=== PATIENT | female | born 1950 | race Caucasian/White ===

== ENCOUNTER → 2023-07-28 13:16 | Outpatient (REF) | payer MEDICARE, OTHER, SELFPAY | LOC: HWWDC 13:16 | PROVIDERS: ATTENDING PHYSICIAN Internal Medicine | DX: Z12.31 Encounter for screening mammogram for malignant neoplasm of breast (principal) | CPT/HCPCS: 77063; 77067 ==

== ENCOUNTER → 2023-08-24 12:38 | Outpatient (REF) | payer MEDICARE, OTHER, SELFPAY | LOC: RAD 12:38 | PROVIDERS: ATTENDING PHYSICIAN Nurse Practitioner Adult Health; FAMILY PHYSICIAN Internal Medicine | DX: R06.02 Shortness of breath (principal); R05.1 Acute cough | CPT/HCPCS: 71046 ==

== ENCOUNTER → 2023-11-30 11:00 | Outpatient (REF) | payer MEDICARE, OTHER, SELFPAY | LOC: HWRAD 11:00 | PROVIDERS: ATTENDING PHYSICIAN Internal Medicine | DX: M85.80 Other specified disorders of bone density and structure, unspecified site (principal); M85.89 Other specified disorders of bone density and structure, multiple sites | CPT/HCPCS: 77080 ==

== ENCOUNTER 2024-07-19 15:47 | Emergency (ER) | payer MEDICARE, OTHER, SELFPAY ==
[2024-07-19 15:50] VITALS: BP 157/97
--- NOTE | 2024-07-19 16:11 | ED.GENMED ---
History of Present Illness
General
Chief Complaint: Head Injury
Source: patient
Exam Limitations: none
Time Seen by Provider: 07/19/24 16:06
Nursing documentation reviewed up to this point in time: agreed with
History of Present Illness
History of Present Illness:
Patient states she was getting out of her car and moved car forward. SHe fell back and hit back of head on pavement. No LOC. Complains of headache, pain to posterior scalp. Injury occurred just [employer]
Past History
Past History
ED Past Medical History: HTN (Urinary frequency.), Hypercholesterolemia, Hypothyroidism and Psychiatric (anxiety)
ED Past Surgical History: Gynecological (Bladder lift December 2013)
Social History
Tobacco: Non-smoker
Alcohol: None
Drug: None
Personal:
Living: with family
Employment: Employed
Family History
Family History: CAD
Review of Systems
Review of Systems
Allergies reviewed?: Yes
All Other Systems: ROS reviewed and negative except as documented in HPI and ROS
Constitutional: Reports no symptoms
EENT: Reports no symptoms
Respiratory: Reports no symptoms
Cardiac: Reports no symptoms
ABD/GI: Reports no symptoms
: Reports no symptoms
Musculoskeletal: Reports no symptoms
Skin: Reports no symptoms
Neurological: Reports headache (declines tylenol at this time)
Psychiatric: Reports no symptoms
Phy Exam
General Physical Exam
General Presentation: mild distress
General age: appears stated age
General Skin: warm and dry
General Habitus: normal
General Mental: alert
Neurological Exam
Neurological Exam: alert, oriented x3, no motor deficits, no sensory deficits and speech normal
[place] Coma Scale
Eye Opening: Spontaneous
Verbal Response: Oriented
Motor Response: Obeys Commands
GCS Total Score: 15
Musculoskeletal Exam
Musculoskeletal Exam: full ROM and neuro vasc intact
Skin Exam
Skin Exam: normal color, warm/dry and no rash
Psychiatric Exam
Psychiatric Exam: normal mood/affect
Course
Orders/Labs/Results
Orders:
Orders
07/19/24 16:11
CT Head W/o Iv Contrast Urgent
Comment:
Reason For Exam: fall
Vital Signs
Initial and Last Documented VS:
Initial Vital Signs
Temp Pulse Resp BP Pulse Ox
98.2 F 69 17 157/97 99
07/19/24 15:50 07/19/24 15:50 07/19/24 15:50 07/19/24 15:50 07/19/24 15:50
Last Documented Vital Signs
Temp Pulse Resp BP Pulse Ox
98.2 F 69 17 157/97 99
07/19/24 15:50 07/19/24 15:50 07/19/24 15:50 07/19/24 15:50 07/19/24 15:50
*Radiology
Radiology exam reviewed: radiology read reviewed
*Pulse Oximetry
Patient hypoxic: no
*Critical Care Note
Total Time (30-74mins, 75-104mins- exclusive of procedures): Not Applicable
ED Attending Note
-
Portions of this chart may have been created with voice recognition software.� Occasional wrong word or��sound alike� substitutions may have occurred due to the inherent limitations of voice recognition software.
Discharge Plan
Departure
Patient Disposition: Home (Routine Discharge)
Date of Disposition: 07/19/24
Time of Disposition: 16:57
Patient with high blood pressure during this ER visit?: No
Condition: Good
Covid-19: Not Applicable
Discharge Problem:
Head injury
Instructions: Head Injury in Adults (DC), Contusion (DC)
Prescriptions:
No Action
escitalopram oxalate [Lexapro] 20 MG tablet
20 mg PO DAILY
atorvastatin 20 MG tablet
20 mg PO DAILY
multivitamin 1 EACH tablet
1 ea PO DAILY
biotin 1 MG tablet
8 mg PO DAILY
mirabegron [Myrbetriq] 50 MG tablet extended release 24 hr
50 mg PO DAILY
cholecalciferol (vitamin D3) 5,000 UNIT tablet,disintegrating
5,000 unit PO DAILY
Circulation And Vein Support
2 tab PO DAILY
mupirocin 1 APPLIC ointment
1 applic intranasal BID Qty: 1 0RF
aspirin 325 MG tablet
325 mg PO DAILY 0RF
docusate sodium 100 MG capsule
100 mg PO BID 0RF
sennosides [senna] 1 TABLET tablet
2 tab PO BID 0RF
chlorthalidone 50 MG tablet
50 mg PO DAILY Qty: 0 0RF
Rx Instructions:
Hold if systolic blood pressure <130
oxycodone 5 MG tablet
5 mg PO Q4HPRN PRN (Reason: moderate-severe pain) Qty: 30 0RF
Rx Instructions:
1 tab moderate pain or 2 if pain severe
Dx total joint replacement
ongoing therapy
acetaminophen 500 MG tablet
1,000 mg PO QID Qty: 1 0RF
Rx Instructions:
standing order
ibuprofen 400 MG tablet
400 mg PO BID Qty: 1 0RF
Rx Instructions:
take with food
do not take within 2 hours of aspirin
famotidine 20 MG tablet
20 mg PO HS Qty: 30 0RF
Referrals:
Zoila Mas MD [Family Provider, Internal Medicine] - Tomorrow
Interventions
Interventions:
*Risk Screen - Suicide Last Done: 07/19/24 15:52
*General Assessment Last Done: 07/19/24 15:52
*Neglect/Abuse Screening Last Done: 07/19/24 15:52
*ED COVID-19 Vaccine History Last Done: 07/19/24 15:52
Discharge Date and Time
Print Language: [place]
[2024-07-19 17:20] VITALS: BP 129/94
== END 2024-07-19 17:21 | disposition home or self-care (01) ==
LOC: EMR 15:47
PROVIDERS: EMERGENCY PHYSICIAN Emergency Medicine; FAMILY PHYSICIAN Internal Medicine
DX: S09.90XA Unspecified injury of head, initial encounter (principal); W19.XXXA Unspecified fall, initial encounter; I10 Essential (primary) hypertension; R35.0 Frequency of micturition; E03.9 Hypothyroidism, unspecified; E78.00 Pure hypercholesterolemia, unspecified; F41.9 Anxiety disorder, unspecified; Z82.49 Family history of ischemic heart disease and other diseases of the circulatory system
CPT/HCPCS: 99284; 70450

== ENCOUNTER → 2025-01-04 16:25 | Outpatient (REF) | payer MEDICARE, OTHER, SELFPAY | LOC: WDC 16:25 | PROVIDERS: ATTENDING PHYSICIAN Internal Medicine | DX: Z12.31 Encounter for screening mammogram for malignant neoplasm of breast (principal) | CPT/HCPCS: 77063; 77067 ==

== ENCOUNTER → 2025-01-18 10:40 | Outpatient (REF) | payer MEDICARE, OTHER, SELFPAY | LOC: WDC 10:40 | PROVIDERS: ATTENDING PHYSICIAN Internal Medicine | DX: R92.8 Other abnormal and inconclusive findings on diagnostic imaging of breast (principal) | CPT/HCPCS: 76642 ==